=== PATIENT | female | born 1990 | race Caucasian/White ===

== ENCOUNTER 2017-10-29 04:07 | Emergency (ER) | payer BC, OTHER ==
[~2017-10-29] VITALS: Ht 162.6 cm; Wt 67.0 kg
[2017-10-29] MEDS ORDERED: ONDANSETRON ODT 4 MG PO ONE (05:00)
[2017-10-29] MEDS ORDERED: HYDROmorphone 1 MG/ML, 1ML IM ONE (05:00)
[2017-10-29] MEDS ORDERED: ONDANSETRON ODT 4 MG ONE (05:06)
[2017-10-29] MEDS ORDERED: HYDROmorphone 2 MG/ML, 1ML ONE (05:07)
[2017-10-29 05:28] LABS: HCG UR SG 1.025 (1.003-1.030); MICROSCOPIC INDICATED
[2017-10-29 05:30] LABS: CULTURE INDICATED? YES
[2017-10-29 05:31] LABS: BASOPHILS # (AUTO) 0.04 x10^3/uL (0-0.1); BASOPHILS % (AUTO) 0 % (0-1); EOSINOPHILS # (AUTO) 0.24 x10^3/uL (0-0.4); EOSINOPHILS % (AUTO) 3 % (1-7); LYMPHOCYTES % (AUTO) 24 % (22-44); MD NO; MEAN CORPUSCULAR HEMOGLOBIN 28.5 pg (27.0-34.8); MEAN CORPUSCULAR HGB CONC 33.4 g/dL (32.4-35.8); MEAN CORPUSCULAR VOLUME 85.2 fL (80-100); MEAN PLATELET VOLUME 8.1 fL (7.4-10.4); MONOCYTES # (AUTO) 0.53 x10^3/uL (0.2-0.8); MONOCYTES % (AUTO) 6 % (2-9); NEUTROPHILS # (AUTO) 6.27 x10^3/uL (1.8-6.8); NEUTROPHILS % (AUTO) 68 % (42-75); PLATELET COUNT 256 x10^3/uL (130-400); RED CELL DISTRIBUTION WIDTH 12.7 % (9.6-15.2)
[2017-10-29 05:45] LABS: ALBUMIN 3.8 g/dL (3.4-5.0); ANION GAP 8 mmol/L (5-15); CALCIUM 8.5 mg/dL (8.5-10.1); CHLORIDE 111 mmol/L (98-107)
[2017-10-29 05:46] LABS: CREATININE 0.53 mg/dL (0.55-1.02)
[2017-10-29 07:08] VITALS: BP 100/68
== END 2017-10-29 07:10 | disposition home or self-care (01) ==
LOC: ED 07:00
DX: N30.00 Acute cystitis without hematuria (principal)
CPT/HCPCS: 36415; 76830; 80048; 81001; 81025; 82040; 85025; 87086; 96372; 99285; J1170; Q0162

== ENCOUNTER 2020-05-06 19:59 | Emergency (ER) | payer BC, OTHER ==
[~2020-05-06] VITALS: Ht 162.6 cm; Wt 74.4 kg
[2020-05-06 20:01] VITALS: BP 145/76
--- NOTE | 2020-05-06 20:45 | NUR ---
c-collar applied, pt leaving for ct
== END 2020-05-06 22:30 | disposition home or self-care (01) ==
LOC: ED 21:53
DX: S33.5XXA Sprain of ligaments of lumbar spine, initial encounter (principal); S16.1XXA Strain of muscle, fascia and tendon at neck level, initial encounter; M50.221 Other cervical disc displacement at C4-C5 level; V49.49XA Driver injured in collision with other motor vehicles in traffic accident, initial encounter; Y93.89 Activity, other specified; Y92.410 Unspecified street and highway as the place of occurrence of the external cause; Y99.8 Other external cause status
CPT/HCPCS: 72110; 72125; 99284